=== PATIENT | female | born 1930 | race Caucasian/White ===

== ENCOUNTER → 2016-07-24 | Outpatient (CLI) | payer MEDICARE, OTHER ==
[2016-07-24 10:24] LABS: PROTHROMBIN TIME 37.6 SEC (11.4-15.4)
== END ==
LOC: OD 09:32
PROVIDERS: ATTEND Internal Medicine Cardiovascular Disease
DX: I48.2 Chronic atrial fibrillation (principal); Z79.01 Long term (current) use of anticoagulants
CPT/HCPCS: 36415; 85610

== ENCOUNTER → 2016-07-27 | Outpatient (CLI) | payer MEDICARE, OTHER ==
[2016-07-27 10:49] LABS: HEMOGLOBIN 12.7 g/dL (12.0-15.5); HGB HCT DIFFERENCE 0.1; MEAN CORPUSCULAR HGB CONC 33.3 g/dL (32.0-36.0); MEAN CORPUSCULAR VOLUME 90 fl (80-97); RED BLOOD COUNT 4.23 10^6/uL (3.72-5.28); RED CELL DISTRIBUTION WIDTH 15.3 % (11.5-14.0); WHITE BLOOD COUNT 7.8 10^3/uL (4.0-10.5)
[2016-07-27 11:02] LABS: PROTHROMBIN TIME 29.5 SEC (11.4-15.4)
[2016-07-27 11:23] LABS: ANION GAP 14 (5-19); BLOOD UREA NITROGEN 36 mg/dL (7-20); CARBON DIOXIDE 27 mmol/L (22-30); CHLORIDE 96 mmol/L (98-107); CREATININE RESULT 1.83 mg/dL (0.52-1.25); GLUCOSE 142 mg/dL (75-110); POTASSIUM 5.1 mmol/L (3.6-5.0); SODIUM 137.4 mmol/L (137-145)
== END ==
LOC: OD 09:37
PROVIDERS: ATTEND Internal Medicine Cardiovascular Disease
DX: R06.02 Shortness of breath (principal); Z79.899 Other long term (current) drug therapy; Z79.01 Long term (current) use of anticoagulants; I48.2 Chronic atrial fibrillation
CPT/HCPCS: 36415; 80048; 83735; 83880; 85027; 85610

== ENCOUNTER → 2016-08-02 | Outpatient (CLI) | payer MEDICARE, OTHER ==
[2016-08-02 12:03] LABS: PROTHROMBIN TIME 50.5 SEC (11.4-15.4)
== END ==
LOC: OD 09:37
PROVIDERS: ATTEND Internal Medicine Cardiovascular Disease
DX: I48.2 Chronic atrial fibrillation (principal); Z79.01 Long term (current) use of anticoagulants
CPT/HCPCS: 36415; 85610

== ENCOUNTER → 2016-08-09 | Outpatient (CLI) | payer MEDICARE, OTHER ==
[2016-08-09 10:18] LABS: PROTHROMBIN TIME 42.2 SEC (11.4-15.4)
== END ==
LOC: OD 08:50
PROVIDERS: ATTEND Internal Medicine Cardiovascular Disease
DX: I48.2 Chronic atrial fibrillation (principal); Z79.01 Long term (current) use of anticoagulants
CPT/HCPCS: 36415; 85610

== ENCOUNTER → 2016-08-22 | Outpatient (CLI) | payer MEDICARE, OTHER ==
[2016-08-22 10:55] LABS: PROTHROMBIN TIME 36.3 SEC (11.4-15.4)
== END ==
LOC: OD 09:14
PROVIDERS: ATTEND Internal Medicine Cardiovascular Disease
DX: I48.2 Chronic atrial fibrillation (principal); Z79.01 Long term (current) use of anticoagulants
CPT/HCPCS: 36415; 85610

== ENCOUNTER → 2016-09-03 | Outpatient (CLI) | payer MEDICARE, OTHER ==
[2016-09-03 11:10] LABS: PROTHROMBIN TIME 30.9 SEC (11.4-15.4)
== END ==
LOC: OD 09:49
PROVIDERS: ATTEND Internal Medicine Cardiovascular Disease
DX: Z79.01 Long term (current) use of anticoagulants (principal)
CPT/HCPCS: 36415; 85610

== ENCOUNTER → 2016-09-17 | Outpatient (CLI) | payer MEDICARE, OTHER ==
[2016-09-17 10:49] LABS: PROTHROMBIN TIME 33.7 SEC (11.4-15.4)
[2016-09-17 11:08] LABS: ANION GAP 14 (5-19); BLOOD UREA NITROGEN 35 mg/dL (7-20); CALCIUM 9.8 mg/dL (8.4-10.2); CARBON DIOXIDE 28 mmol/L (22-30); CHLORIDE 99 mmol/L (98-107); CREATININE RESULT 1.56 mg/dL (0.52-1.25); GLUCOSE 94 mg/dL (75-110); POTASSIUM 4.5 mmol/L (3.6-5.0); SODIUM 140.5 mmol/L (137-145)
== END ==
LOC: OD 09:17
PROVIDERS: ATTEND Internal Medicine Cardiovascular Disease
DX: R73.9 Hyperglycemia, unspecified (principal); N18.4 Chronic kidney disease, stage 4 (severe); E66.09 Other obesity due to excess calories; R06.02 Shortness of breath; Z79.01 Long term (current) use of anticoagulants
CPT/HCPCS: 36415; 80048; 83036; 83880; 85610

== ENCOUNTER → 2016-09-25 | Outpatient (CLI) | payer MEDICARE, OTHER ==
[2016-09-25 11:17] LABS: PROTHROMBIN TIME 34.1 SEC (11.4-15.4)
== END ==
LOC: OD 10:05
PROVIDERS: ATTEND Internal Medicine Cardiovascular Disease
DX: Z79.01 Long term (current) use of anticoagulants (principal)
CPT/HCPCS: 36415; 85610

== ENCOUNTER → 2016-10-09 | Outpatient (CLI) | payer MEDICARE, OTHER ==
[2016-10-09 11:15] LABS: PROTHROMBIN TIME 37.7 SEC (11.4-15.4)
[2016-10-09 11:16] LABS: ANION GAP 12 (5-19); BLOOD UREA NITROGEN 28 mg/dL (7-20); CALCIUM 9.8 mg/dL (8.4-10.2); CARBON DIOXIDE 28 mmol/L (22-30); CHLORIDE 100 mmol/L (98-107); CREATININE RESULT 1.61 mg/dL (0.52-1.25); GLUCOSE 92 mg/dL (75-110); MAGNESIUM 2.5 mg/dL (1.6-2.3); POTASSIUM 4.7 mmol/L (3.6-5.0); SODIUM 139.9 mmol/L (137-145)
== END ==
LOC: OD 09:17
PROVIDERS: ATTEND Internal Medicine Cardiovascular Disease
DX: N18.4 Chronic kidney disease, stage 4 (severe) (principal); R06.02 Shortness of breath; Z79.01 Long term (current) use of anticoagulants
CPT/HCPCS: 36415; 80048; 83735; 83880; 85610

== ENCOUNTER 2016-10-16 18:18 | Observation (INO) | payer MEDICARE, OTHER ==
--- NOTE | 2016-10-16 18:56 | ER Document Report ---
ED Medical Screen (RME) - General Stated Complaint: SWELLING Notes: Patient states she was sent over by Dr. Barajas for evaluation of heart failure, renal failure, and leg swelling. Patient denies chest pain but is having some shortness of breath. I have greeted and performed a rapid initial assessment of this patient. A comprehensive ED assessment and evaluation of the patient, analysis of test results and completion of the medical decision making process will be conducted by additional ED providers. TRAVEL OUTSIDE OF THE [place] IN LAST 30 DAYS: No - Related Data Allergies/Adverse Reactions: erythromycin base [Erythromycin Base] Allergy (Severe, Verified 10/16/16 18:50) Anaphylaxis dipyridamole [From Persantine] Allergy (Verified 10/16/16 18:50) doxycycline [Doxycycline] Allergy (Verified 10/16/16 18:50) ibuprofen [From Motrin] Allergy (Verified 10/16/16 18:50) penicillin G [Penicillin G] Allergy (Verified 10/16/16 18:50) Sulfa (Sulfonamide Antibiotics) Allergy (Verified 10/16/16 18:50) vancomycin [Vancomycin] Adverse Reaction (Intermediate, Verified 10/16/16 18:50) red rings legs Past Medical History - Past Medical History Cardiac Medical History: Reports: Hx Atrial Fibrillation, Hx Congestive Heart Failure, Hx Coronary Artery Disease, Hx Hypercholesterolemia, Hx Hypertension Denies: Hx Heart Attack Pulmonary Medical History: Reports: Hx Pneumonia Denies: Hx Asthma, Hx Bronchitis, Hx COPD Neurological Medical History: Reports: Hx Cerebrovascular Accident. Denies: Hx Seizures Malignancy Medical History: Reports: Hx Breast Cancer - LUMPECTOMY, Hx Skin Cancer GI Medical History: Reports: Hx Gastroesophageal Reflux Disease, Hx Irritable Bowel Musculoskeltal Medical History: Denies Hx Arthritis Past Surgical History: Reports: Hx Appendectomy, Hx Breast Surgery - REMOVAL OF RIGHT BREAST, LUMPECTOMY, Hx Cardiac Surgery - MILTRAL VALVE, BYPASS X 2, STENTS , Hx Cholecystectomy, Hx Hysterectomy. Denies: Hx Pacemaker - Immunizations Hx Diphtheria, Pertussis, Tetanus Vaccination: Yes Physical Exam - Vital signs Vitals: Temp Pulse Resp BP Pulse Ox 97.6 F 51 L 24 H 117/70 99 10/16/16 18:44 10/16/16 18:44 10/16/16 18:44 10/16/16 18:44 10/16/16 18:44 - Respiratory Respiratory status: No respiratory distress Breath sounds: Normal Course - Vital Signs Vital signs: Temp Pulse Resp BP Pulse Ox 97.6 F 51 L 24 H 117/70 99 10/16/16 18:44 10/16/16 18:44 10/16/16 18:44 10/16/16 18:44 10/16/16 18:44
[2016-10-16 19:24] LABS: ABSOLUTE BASOPHILS # (AUTO) 0.1 10^3/uL (0.0-0.2); ABSOLUTE EOSINOPHILS # (AUTO) 0.2 10^3/uL (0.0-0.6); ABSOLUTE LYMPHOCYTES (AUTO) 1.6 10^3/uL (0.5-4.7); ABSOLUTE MONOCYTES (AUTO) 0.6 10^3/uL (0.1-1.4); ABSOLUTE NEUT (AUTO) 4.5 10^3/uL (1.7-8.2); BASOPHILS % (AUTO) 1.1 % (0-2); EOSINOPHILS % (AUTO) 2.4 % (0-6); HEMATOCRIT 36.6 % (36.0-47.0); HEMOGLOBIN 12.2 g/dL (12.0-15.5); LYMPHOCYTES % (AUTO) 22.6 % (13-45); MEAN CORPUSCULAR HEMOGLOBIN 29.8 pg (27.0-33.4); MEAN CORPUSCULAR HGB CONC 33.4 g/dL (32.0-36.0); MEAN CORPUSCULAR VOLUME 89 fl (80-97); MONOCYTES % (AUTO) 8.8 % (3-13); RED BLOOD COUNT 4.11 10^6/uL (3.72-5.28); RED CELL DISTRIBUTION WIDTH 15.1 % (11.5-14.0); SEGMENTED NEUTROPHILS % (AUTO) 65.1 % (42-78); WHITE BLOOD COUNT 6.9 10^3/uL (4.0-10.5)
[2016-10-16 19:45] LABS: ALANINE AMINOTRANSFERASE 16 U/L (9-52); ALBUMIN 4.6 g/dL (3.5-5.0); ALKALINE PHOSPHATASE 96 U/L (38-126); ANION GAP 14 (5-19); ASPARTATE AMINO TRANSFERASE 27 U/L (14-36); BILIRUBIN,DIRECT 0.3 mg/dL (0.0-0.4); BILIRUBIN,TOTAL 2.2 mg/dL (0.2-1.3); BLOOD UREA NITROGEN 32 mg/dL (7-20); CALCIUM 9.7 mg/dL (8.4-10.2); CARBON DIOXIDE 30 mmol/L (22-30); CHLORIDE 97 mmol/L (98-107); CREATINE KINASE 31 U/L (30-135); CREATININE RESULT 1.81 mg/dL (0.52-1.25); GLUCOSE 86 mg/dL (75-110); LIPASE 111.1 U/L (23-300); POTASSIUM 4.3 mmol/L (3.6-5.0); SODIUM 140.9 mmol/L (137-145); TOTAL PROTEIN 7.6 g/dL (6.3-8.2)
[2016-10-16 19:53] LABS: CREATINE KINASE MB 0.28 ng/mL (<4.55)
[2016-10-16 19:54] LABS: TROPONIN I < 0.012 ng/mL
--- NOTE | 2016-10-16 20:22 | EKG REPORT ---
SEVERITY:- ABNORMAL ECG - ATRIAL FIBRILLATION LEFT BUNDLE BRANCH BLOCK : Confirmed by: Rian Oswald 16-Oct-2016 20:21:26
[2016-10-17 00:39] LABS: APPEARANCE,URINE CLEAR; BILIRUBIN,URINE NEGATIVE (NEGATIVE); GLUCOSE, URINE NEGATIVE (NEGATIVE); KETONES,URINE NEGATIVE (NEGATIVE); LEUKOCYTE ESTERASE,URINE SMALL (NEGATIVE); NITRITE,URINE NEGATIVE (NEGATIVE); PROTEIN,URINE NEGATIVE (NEGATIVE); URINE SPECIFIC GRAVITY 1.005; UROBILINOGEN,URINE NEGATIVE mg/dL (<2.0)
[2016-10-17] MEDS ORDERED: FUROSEMIDE INJ/PF 100 MG/10 ML SDV IV ONE (00:48)
--- NOTE | 2016-10-17 00:52 | ER Document Report ---
ED General - General Chief Complaint: Swelling of Lower Extremity Stated Complaint: SWELLING Mode of Arrival: Ambulatory Information source: Patient Notes: 86-year-old well-appearing female presents to the emergency department referred by her behavior support specialist for bilateral lower extremity edema. Patient reports history of CHF, CABG, and blood replacement in the past. Reports was recently changed from Lasix to torsemide. Patient reports was told by her behavior support specialist today Dr. Barajas to come to the emergency department for admission and intravenous Lasix. Patient reports feels like her chronic dyspnea with exertion and is at its baseline. Denies any fever or chest pain. Reports her only new or acute symptoms is bilateral lower extremity increased edema. TRAVEL OUTSIDE OF THE [place] IN LAST 30 DAYS: No - HPI Quality of pain: No pain Similar symptoms previously: Yes Recently seen / treated by doctor: Yes - Related Data Allergies/Adverse Reactions: erythromycin base [Erythromycin Base] Allergy (Severe, Verified 10/16/16 18:50) Anaphylaxis dipyridamole [From Persantine] Allergy (Verified 10/16/16 18:50) doxycycline [Doxycycline] Allergy (Verified 10/16/16 18:50) ibuprofen [From Motrin] Allergy (Verified 10/16/16 18:50) penicillin G [Penicillin G] Allergy (Verified 10/16/16 18:50) Sulfa (Sulfonamide Antibiotics) Allergy (Verified 10/16/16 18:50) vancomycin [Vancomycin] Adverse Reaction (Intermediate, Verified 10/16/16 18:50) red rings legs Home Medications: Current Home Medications Chlordiazepoxide/Clidinium Br [Librax Capsule] 10/17/16 [History] Torsemide [Demadex 20 mg Tablet] 20 mg PO BID 10/17/16 [History] Past Medical History - General Information source: Patient - Social History Smoking Status: Never Smoker Chew tobacco use (# tins/day): No Frequency of alcohol use: None Drug Abuse: None Lives with: Family Family History: Reviewed & Not Pertinent Patient has suicidal ideation: No Patient has homicidal ideation: No - Past Medical History Cardiac Medical History: Reports: Hx Atrial Fibrillation, Hx Congestive Heart Failure, Hx Coronary Artery Disease, Hx Hypercholesterolemia, Hx Hypertension Denies: Hx Heart Attack Pulmonary Medical History: Reports: Hx Pneumonia Denies: Hx Asthma, Hx Bronchitis, Hx COPD Neurological Medical History: Reports: Hx Cerebrovascular Accident. Denies: Hx Seizures Renal/ Medical History: Denies: Hx Peritoneal Dialysis Malignancy Medical History: Reports: Hx Breast Cancer - LUMPECTOMY, Hx Skin Cancer GI Medical History: Reports: Hx Gastroesophageal Reflux Disease, Hx Irritable Bowel Musculoskeltal Medical History: Denies Hx Arthritis Past Surgical History: Reports: Hx Appendectomy, Hx Breast Surgery - REMOVAL OF RIGHT BREAST, LUMPECTOMY, Hx Cardiac Surgery - MILTRAL VALVE, BYPASS X 2, STENTS , Hx Cholecystectomy, Hx Hysterectomy. Denies: Hx Pacemaker - Immunizations Hx Diphtheria, Pertussis, Tetanus Vaccination: Yes Hx Pneumococcal Vaccination: 07/22/11 Review of Systems - Review of Systems Constitutional: No symptoms reported EENT: No symptoms reported Cardiovascular: See HPI Respiratory: No symptoms reported Gastrointestinal: No symptoms reported Genitourinary: No symptoms reported Female Genitourinary: No symptoms reported Musculoskeletal: See HPI Skin: No symptoms reported Hematologic/Lymphatic: No symptoms reported Neurological/Psychological: No symptoms reported -: Yes All other systems reviewed and negative Physical Exam - Vital signs Vitals: Temp Pulse Resp BP Pulse Ox 97.6 F 51 L 24 H 117/70 99 10/16/16 18:44 10/16/16 18:44 10/16/16 18:44 10/16/16 18:44 10/16/16 18:44 - General General appearance: Appears well, Alert In distress: None - Respiratory Respiratory status: No respiratory distress Chest status: Nontender Breath sounds: Normal - CTAB. No: Rales, Rhonchi Chest palpation: Normal - Cardiovascular Rhythm: Regular Heart sounds: Normal auscultation Murmur: No Pulses: Normal: Radial Normal capillary refill: Yes - Abdominal Inspection: Normal Distension: No distension Bowel sounds: Normal Tenderness: Nontender Organomegaly: No organomegaly - Back Back: Normal, Nontender - Extremities General upper extremity: Normal inspection, Nontender, Normal color, Normal ROM , Normal strength, Normal temperature. No: Edema General lower extremity: Normal inspection, Nontender, Edema - 4+ bilateral lower extremity edema, Normal color, Normal ROM, Normal strength, Normal temperature, Normal weight bearing. No: Rachel's sign - Neurological Neuro grossly intact: Yes Cognition: Normal Orientation: AAOx4 Amery Coma Scale Eye Opening: Spontaneous Amery Coma Scale Verbal: Oriented Amery Coma Scale Motor: Obeys Commands Kayleen Coma Scale Total: 15 Speech: Normal Motor strength normal: LUE, RUE, LLE, RLE Sensory: Normal Course - Re-evaluation Re-evalutation: 10/17/16 00:45 Patient hemodynamically stable, in no distress, afebrile, nontoxic, and very well-appearing. Patient was referred to the emergency department by her behavior support specialist Dr. Barajas for admission and IV diuresis with 100 mg Lasix per behavior support specialist. Patient presentation and findings were discussed with hospitalist Dr. Escamilla who agrees to assume care and admit to observation unit. Findings and plan discussed with patient who is agreeable with admission for observation. ED physician Dr. Beckwith consulted during evaluation, treatment, and disposition per [facility] guidelines. - Vital Signs Vital signs: Temp Pulse Resp BP Pulse Ox 97.6 F 68 16 122/58 L 96 10/17/16 05:39 10/17/16 05:39 10/17/16 05:39 10/17/16 05:39 10/17/16 05:39 - Laboratory Result Diagrams: 10/16/16 19:05 10/17/16 06:39 Laboratory results interpreted by me: 10/16/16 10/16/16 10/16/16 19:05 19:05 19:05 RDW 15.1 H Chloride 97 L BUN 32 H Creatinine 1.81 H Est GFR ( Amer) 32 L Est GFR (Non-Af Amer) 26 L Total Bilirubin 2.2 H NT-Pro-B Natriuret Pep 6090 H Ur Leukocyte Esterase 10/17/16 00:10 RDW Chloride BUN Creatinine Est GFR ( Amer) Est GFR (Non-Af Amer) Total Bilirubin NT-Pro-B Natriuret Pep Ur Leukocyte Esterase SMALL H - Diagnostic Test Radiology reviewed: Image reviewed, Reports reviewed Discharge - Discharge Clinical Impression: Bilateral lower extremity edema Condition: Stable Disposition: ADMITTED OBSERVATION Admitting Provider: Hospitalist - Dr. Escamilla Unit Admitted: Telemetry
[2016-10-17] MEDS ORDERED: MAGNESIUM HYDROXIDE SUSP 30 ML UDCUP PO PRN (01:28)
[2016-10-17] MEDS ORDERED: ACETAMINOPHEN 325 MG TABLET PO PRN (01:28)
[2016-10-17] MEDS ORDERED: LACTULOSE SYRUP 20 GM/30 ML UDCUP PO ONE (01:45)
[2016-10-17] MEDS ORDERED: HEPARIN SOD (PORCINE) 5,000 UNIT/ML 1 ML SYRINGE SUBCUT SCH (06:00)
--- NOTE | 2016-10-17 06:07 | PDOC H&P ---
History of Present Illness Admission Date/PCP: 10/17/16 01:28 CHRISTIANA MEJIA MD Patient complains of: Lower extremity edema History of Present Illness: VERA DORANTES is a 86 year old female with a past medical history of stage III chronic kidney disease, atrial fibrillation, congestive heart failure, hypertension, A fibrillation, mechanical aortic valve on chronic anticoagulation and venous stasis. Who been her usual state of health until approximately week ago noting excessive lower extremity edema prompting him to seek evaluation with her tool/die maker Dr. Barajas who refers her to the emergency room for evaluation. Prior to presentation the patient has taken 40 mg of torsemide, her labs are concerning for acute on chronic kidney disease. She denies diet or medication noncompliance but admits refusal of RENATO stockings with a primary complaint of lower extremity edema. Past Medical History Cardiac Medical History: Reports: Atrial Fibrillation, Congestive Heart Failure , Coronary Artery Disease, Hyperlipidema, Hypertension Denies: Myocardial Infarction Pulmonary Medical History: Reports: Pneumonia Denies: Asthma, Bronchitis, Chronic Obstructive Pulmonary Disease (COPD) Neurological Medical History: Denies: Seizures Malignancy Medical History: Reports: Breast Cancer - LUMPECTOMY, Skin Cancer GI Medical History: Reports: Gastroesophageal Reflux Disease Musculoskeltal Medical History: Denies: Arthritis Hematology: Denies: Anemia Past Surgical History Past Surgical History: Reports: Appendectomy, Cholecystectomy, Hysterectomy Denies: Pacemaker Social History Information Source: Patient Smoking Status: Unknown if Ever Smoked Frequency of Alcohol Use: None Hx Recreational Drug Use: No Drugs: None Hx Prescription Drug Abuse: No - Advance Directive Resuscitation Status: Full Code Family History Family History: Hypertension Parental Family History Reviewed: Yes Children Family History Reviewed: Yes Sibling(s) Family History Reviewed.: Yes Medication/Allergy Home Medications: Chlordiazepoxide/Clidinium Br [Librax Capsule] 1 cap PO QHS 06/23/15 Ergocalciferol (Vitamin D2) [Vitamin D2] 2,000 unit PO DAILY 06/23/15 Ezetimibe [Zetia 10 mg Tablet] 10 mg PO DAILY 06/23/15 Pravastatin Sodium 40 mg PO QHS 06/23/15 Spironolactone [Aldactone 25 mg Tablet] 12.5 mg PO DAILY 06/23/15 Warfarin Sodium [Coumadin 3 mg Tablet] 3 mg PO DAILY 06/23/15 Ciprofloxacin HCl [Cipro 500 mg Tablet] 500 mg PO BID #20 tablet 07/20/15 Chlordiazepoxide/Clidinium Br [Librax Capsule] 10/17/16 Torsemide [Demadex 20 mg Tablet] 20 mg PO BID 10/17/16 Allergies/Adverse Reactions: erythromycin base [Erythromycin Base] Allergy (Severe, Verified 10/16/16 18:50) Anaphylaxis dipyridamole [From Persantine] Allergy (Verified 10/16/16 18:50) doxycycline [Doxycycline] Allergy (Verified 10/16/16 18:50) ibuprofen [From Motrin] Allergy (Verified 10/16/16 18:50) penicillin G [Penicillin G] Allergy (Verified 10/16/16 18:50) Sulfa (Sulfonamide Antibiotics) Allergy (Verified 10/16/16 18:50) vancomycin [Vancomycin] Adverse Reaction (Intermediate, Verified 10/16/16 18:50) red rings legs Review of Systems Constitutional: ABSENT: chills, fever(s), headache(s), weight gain, weight loss Eyes: ABSENT: visual disturbances Ears: ABSENT: hearing changes Cardiovascular: ABSENT: chest pain, dyspnea on exertion, edema, orthropnea, palpitations Respiratory: ABSENT: cough, hemoptysis Gastrointestinal: ABSENT: abdominal pain, constipation, diarrhea, hematemesis, hematochezia, nausea, vomiting Genitourinary: ABSENT: dysuria, hematuria Musculoskeletal: ABSENT: joint swelling Integumentary: ABSENT: rash, wounds Neurological: ABSENT: abnormal gait, abnormal speech, confusion, dizziness, focal weakness, syncope Psychiatric: ABSENT: anxiety, depression, homidical ideation, suicidal ideation Endocrine: ABSENT: cold intolerance, heat intolerance, polydipsia, polyuria Hematologic/Lymphatic: ABSENT: easy bleeding, easy bruising Physical Exam Vital Signs: Temp Pulse Resp BP Pulse Ox 97.6 F 51 L 14 130/67 H 93 10/16/16 18:44 10/16/16 18:44 10/17/16 04:00 10/17/16 01:01 10/17/16 04:00 General appearance: PRESENT: cooperative Head exam: PRESENT: atraumatic, normocephalic Eye exam: PRESENT: conjunctiva pink, EOMI, PERRLA. ABSENT: scleral icterus Ear exam: PRESENT: normal external ear exam Mouth exam: PRESENT: dry mucosa Neck exam: ABSENT: carotid bruit, JVD, lymphadenopathy, thyromegaly Respiratory exam: PRESENT: clear to auscultation james, crackles, other - Right base crackles present and known chronic. ABSENT: accessory muscle use, chest wall tenderness, decreased breath sounds, prolonged expiratory phas, rales, retraction, rhonchi, tachypnea, wheezes Cardiovascular exam: PRESENT: irregular rhythm, +S1, +S2, systolic murmur. ABSENT: diastolic murmur, gallop, RRR, rubs Pulses: PRESENT: normal dorsalis pedis pul Vascular exam: PRESENT: normal capillary refill GI/Abdominal exam: PRESENT: normal bowel sounds, soft. ABSENT: distended, guarding, mass, organolmegaly, rebound, tenderness Rectal exam: PRESENT: deferred Extremities exam: PRESENT: +2 edema - Chronic +2 lower extremity edema suggestive of stasis Musculoskeletal exam: PRESENT: full ROM Neurological exam: PRESENT: alert, awake, oriented to person, oriented to place , oriented to time, oriented to situation, CN II-XII grossly intact. ABSENT: motor sensory deficit Psychiatric exam: PRESENT: appropriate affect, normal mood. ABSENT: homicidal ideation, suicidal ideation Skin exam: PRESENT: dry, intact, warm. ABSENT: cyanosis, rash Results Impressions: Chest X-Ray 10/16/16 18:51 IMPRESSION: Cardiomegaly. Minimal airspace disease in the right base either atelectasis or developing pneumonia. Assessment & Plan - Diagnosis (1) Acute worsening of stage 4 chronic kidney disease Plan: Patient initiated Demadex 40 mg prior to ER presentation double her usual dose and presents without decompensation of congestive heart failure, I'll avoid nephrotoxic drugs and doses, or additional diuresis pending follow-up chemistry (2) CHF (congestive heart failure) Qualifiers: Congestive heart failure type: systolic Is this a current diagnosis for this admission?: YesPlan: Patient appears well compensated currently will continue to monitor clinically (3) History of aortic valve replacement Is this a current diagnosis for this admission?: YesPlan: Evaluate INR and continue Coumadin (4) Venous stasis Is this a current diagnosis for this admission?: YesPlan: Patient received extensive education regarding her chronic lower extremity edema and her need of compression stockings, emphasizing diuretics will worsen renal failure without improving her lower extremity edema - Time Time Spent: 30 to 50 Minutes
[2016-10-17 06:32] VITALS: BP 122/58
[2016-10-17 06:56] LABS: PROTHROMBIN TIME 33.1 SEC (11.4-15.4)
[2016-10-17 07:09] LABS: ANION GAP 12 (5-19); BLOOD UREA NITROGEN 30 mg/dL (7-20); CALCIUM 9.2 mg/dL (8.4-10.2); CARBON DIOXIDE 29 mmol/L (22-30); CHLORIDE 99 mmol/L (98-107); CREATININE RESULT 1.63 mg/dL (0.52-1.25); GLUCOSE 95 mg/dL (75-110); POTASSIUM 4.3 mmol/L (3.6-5.0); SODIUM 139.8 mmol/L (137-145)
[2016-10-17] MEDS ORDERED: (PENDING PHARMACY ID) (Warfarin Sodium 3 MG) PO SCH (10:00)
[2016-10-17] MEDS ORDERED: DOCUSATE SODIUM 100 MG CAPSULE PO SCH (10:00)
[2016-10-17] MEDS ORDERED: ATENOLOL 50 MG TABLET PO SCH (10:00)
[2016-10-17] MEDS ORDERED: (PENDING PHARMACY ID) (Bisoprolol Fumarate [Zebeta 5 Mg Tablet] 2.5 MG) PO SCH (10:00)
[2016-10-17] MEDS ORDERED: TORSEMIDE 20 MG TABLET PO SCH (10:00)
[2016-10-17] MEDS ORDERED: SPIRONOLACTONE 25 MG TABLET PO SCH (10:00)
--- NOTE | 2016-10-17 12:46 | PDOC DISCHARGE SUMMARY ---
General - Admit/Disc Date/PCP Admission Date/Primary Care Provider: 10/17/16 01:28 CHRISTIANA MEJIA MD Discharge Date: 10/17/16 - Discharge Diagnosis (1) Acute worsening of stage 4 chronic kidney disease Is this a current diagnosis for this admission?: Yes (2) Bilateral lower extremity edema Is this a current diagnosis for this admission?: Yes (3) CHF (congestive heart failure) Is this a current diagnosis for this admission?: YesSummary: Patient no evidence for exacerbation (4) Venous stasis Is this a current diagnosis for this admission?: Yes (5) Anticoagulated on Coumadin Is this a current diagnosis for this admission?: Yes (6) Atrial fibrillation Is this a current diagnosis for this admission?: Yes (7) History of aortic valve replacement Is this a current diagnosis for this admission?: Yes (8) History of mitral valve replacement with mechanical valve Is this a current diagnosis for this admission?: Yes (9) Hyperlipidemia Is this a current diagnosis for this admission?: Yes - Additional Information Resuscitation Status: Full Code Discharge Diet: Cardiac Discharge Activity: Activity As Tolerated, Keep Legs Elevated Home Medications: Chlordiazepoxide/Clidinium Br [Librax Capsule] 1 cap PO QHS 06/23/15 Ergocalciferol (Vitamin D2) [Vitamin D2] 2,000 unit PO DAILY 06/23/15 Ezetimibe [Zetia 10 mg Tablet] 10 mg PO DAILY 06/23/15 Pravastatin Sodium 40 mg PO QHS 06/23/15 Spironolactone [Aldactone 25 mg Tablet] 12.5 mg PO DAILY 06/23/15 Warfarin Sodium [Coumadin 3 mg Tablet] 3 mg PO DAILY 06/23/15 Bisoprolol Fumarate [Zebeta 5 mg Tablet] 5 mg PO DAILY 10/17/16 Chlordiazepoxide/Clidinium Br [Librax Capsule] 1 cap PO QHS 10/17/16 Torsemide [Demadex 20 mg Tablet] 20 mg PO BID 10/17/16 History of Present Illness History of Present Illness: VERA DORANTES is a 86 year old female with a history of congestive heart failure as well as atrial fibrillation and chronic renal failure who presented with lower extremity edema. Patient called her catering assistant who recommended she go to emergency room. She had actually increased her torsemide dose, doubled her usual the day prior to presentation. She is noted have an elevated creatinine. She however has not had any orthopnea or PND. She has not worn any lower extremity support hose. Hospital Course Hospital Course: 86-year-old female who presented with complaints of lower extremity edema. Patient however not had any orthopnea PND or worsening shortness of breath. Most for changes were chronic venous stasis changes. The patient however did notice an elevation in her creatinine. She was instructed to decrease her diuretic dose back to her usual dose instead of the double dose she had taken prior to presentation. The patient's creatinine did improve overnight and was felt that she was stable for discharge to home. She is instructed to weigh daily, where lower extremity support hose, and watch his sodium intake. All of her other medical problems were unchanged during this hospitalization. Her Coumadin level on the day of discharge showed an INR of 3.0. Physical Exam Vital Signs: Temp Pulse Resp BP Pulse Ox 97.6 F 60 17 122/58 L 96 10/17/16 11:56 10/17/16 11:56 10/17/16 11:56 10/17/16 05:39 10/17/16 11:56 General appearance: PRESENT: no acute distress Eye exam: PRESENT: conjunctiva pink. ABSENT: scleral icterus Mouth exam: PRESENT: moist, tongue midline Neck exam: ABSENT: JVD Respiratory exam: PRESENT: clear to auscultation james. ABSENT: rales, rhonchi, wheezes Cardiovascular exam: PRESENT: RRR, systolic murmur. ABSENT: diastolic murmur, rubs GI/Abdominal exam: PRESENT: normal bowel sounds, soft. ABSENT: distended, guarding, mass, organolmegaly, rebound, tenderness Extremities exam: PRESENT: full ROM, pedal edema, +2 edema. ABSENT: calf tenderness, clubbing Neurological exam: PRESENT: alert, awake, oriented to person, oriented to place , oriented to time, oriented to situation, CN II-XII grossly intact. ABSENT: motor sensory deficit Psychiatric exam: PRESENT: appropriate affect Skin exam: PRESENT: other - Venous stasis changes of the lower extremities bilaterally. Results Laboratory Results: 10/17/16 06:39 10/17/16 06:39 Sodium 139.8 Potassium 4.3 Chloride 99 Carbon Dioxide 29 Anion Gap 12 BUN 30 H Creatinine 1.63 H Est GFR ( Amer) 36 L Est GFR (Non-Af Amer) 30 L Glucose 95 Calcium 9.2 Impressions: Chest X-Ray 10/16/16 18:51 IMPRESSION: Cardiomegaly. Minimal airspace disease in the right base either atelectasis or developing pneumonia. Qualifiers PATEINT BEING DISCHARGED WITH ANY OF THE FOLLOWING DIAGNOSIS?: Heart Failure HF Pt being discharged on ACEI for LVEF less than 40%?: No Reason(s) for not prescribing ACEI:: Drug intolerance HF Pt being discharged on ARBS for LVEF less than 40%?: No Reason(s) for not prescribing ARBS:: Drug intolerance HF Pt with Afib discharged with Warfarin?: Yes HF Pt discharged on evidence-based Beta Casi:: Yes Plan Discharge Plan: Patient will follow up with her primary care doctor in 2 weeks. Time Spent: Less than 30 Minutes
[2016-10-17] MEDS ORDERED: ATORVASTATIN CALCIUM 10 MG TABLET PO SCH (22:00)
[2016-10-17] MEDS ORDERED: WARFARIN SODIUM 3 MG TABLET PO SCH (22:00)
[2016-10-17] MEDS ORDERED: (PENDING PHARMACY ID) (Pravastatin Sodium [Pravastatin Sodium] 40 MG) PO SCH (22:00)
== END 2016-10-17 12:21 | disposition home or self-care (01) ==
LOC: ER 18:18 → UNDOADMOB 10-17 01:03 → EH 10-17 01:03 → 5 10-17 05:00
PROVIDERS: ADMIT Internal Medicine; ATTEND Internal Medicine
DX: N17.9 Acute kidney failure, unspecified (principal); I13.0 Hypertensive heart and chronic kidney disease with heart failure and stage 1 through stage 4 chronic kidney disease, or unspecified chronic kidney disease; N18.4 Chronic kidney disease, stage 4 (severe); I50.20 Unspecified systolic (congestive) heart failure; I87.8 Other specified disorders of veins; R60.9 Edema, unspecified; E78.5 Hyperlipidemia, unspecified; I48.91 Unspecified atrial fibrillation; I25.10 Atherosclerotic heart disease of native coronary artery without angina pectoris; Z79.01 Long term (current) use of anticoagulants; Z95.2 Presence of prosthetic heart valve; Z95.1 Presence of aortocoronary bypass graft
CPT/HCPCS: 93005; 99285; 36415 ×2; 82553; 82550; 83690; 84443; 85025; 85610; 80048; 80053; 81001; 84484; 83880; 71020; 93010; G0378 ×2; A9270 ×4; J3490

== ENCOUNTER → 2016-10-16 | Outpatient (CLI) | payer MEDICARE ==
[2016-10-16 11:13] LABS: PROTHROMBIN TIME 33.8 SEC (11.4-15.4)
== END ==
LOC: OD 09:50
PROVIDERS: ATTEND Internal Medicine Cardiovascular Disease
DX: Z79.01 Long term (current) use of anticoagulants (principal)
CPT/HCPCS: 36415; 85610

== ENCOUNTER → 2016-10-19 | Outpatient (CLI) | payer MEDICARE, OTHER | LOC: RAD 08:33 | PROVIDERS: ATTEND Internal Medicine Nephrology | DX: N18.4 Chronic kidney disease, stage 4 (severe) (principal) | CPT/HCPCS: 76770 ==

== ENCOUNTER → 2016-10-19 | Outpatient (CLI) | payer MEDICARE ==
[2016-10-19 10:41] LABS: ABSOLUTE BASOPHILS # (AUTO) 0.1 10^3/uL (0.0-0.2); ABSOLUTE EOSINOPHILS # (AUTO) 0.2 10^3/uL (0.0-0.6); ABSOLUTE LYMPHOCYTES (AUTO) 1.2 10^3/uL (0.5-4.7); ABSOLUTE MONOCYTES (AUTO) 0.5 10^3/uL (0.1-1.4); ABSOLUTE NEUT (AUTO) 5.2 10^3/uL (1.7-8.2); EOSINOPHILS % (AUTO) 2.4 % (0-6); HEMATOCRIT 36.2 % (36.0-47.0); HEMOGLOBIN 12.1 g/dL (12.0-15.5); HGB HCT DIFFERENCE 0.1; LYMPHOCYTES % (AUTO) 16.7 % (13-45); MEAN CORPUSCULAR HEMOGLOBIN 29.9 pg (27.0-33.4); MEAN CORPUSCULAR HGB CONC 33.4 g/dL (32.0-36.0); MEAN CORPUSCULAR VOLUME 89 fl (80-97); MONOCYTES % (AUTO) 7.5 % (3-13); RED BLOOD COUNT 4.05 10^6/uL (3.72-5.28); RED CELL DISTRIBUTION WIDTH 14.9 % (11.5-14.0); SEGMENTED NEUTROPHILS % (AUTO) 72.4 % (42-78); WHITE BLOOD COUNT 7.2 10^3/uL (4.0-10.5)
[2016-10-19 10:44] LABS: PROTHROMBIN TIME 42.3 SEC (11.4-15.4)
[2016-10-19 11:08] LABS: ALBUMIN 4.4 g/dL (3.5-5.0); ANION GAP 16 (5-19); BLOOD UREA NITROGEN 33 mg/dL (7-20); CALCIUM 9.8 mg/dL (8.4-10.2); CARBON DIOXIDE 26 mmol/L (22-30); CHLORIDE 101 mmol/L (98-107); CREATININE RESULT 1.71 mg/dL (0.52-1.25); GLUCOSE 93 mg/dL (75-110); PHOSPHORUS 4.1 mg/dL (2.5-4.5); POTASSIUM 4.4 mmol/L (3.6-5.0); SODIUM 142.5 mmol/L (137-145)
[2016-10-20 10:37] LABS: CREATININE URINE 54.7 mg/dL (Not Estab.); MICROALBUMIN URINE 53.6 ug/mL (Not Estab.)
[2016-10-20 11:12] LABS: VITAMIN D 25-HYDROXY 61.6 ng/mL (30.0-100.0)
== END ==
LOC: OD 09:34
PROVIDERS: ATTEND Internal Medicine Cardiovascular Disease
DX: I13.10 Hypertensive heart and chronic kidney disease without heart failure, with stage 1 through stage 4 chronic kidney disease, or unspecified chronic kidney disease (principal); N18.4 Chronic kidney disease, stage 4 (severe); Z79.01 Long term (current) use of anticoagulants
CPT/HCPCS: 80048; 82040; 82043; 82306; 82570; 83970; 84100; 85025; 85610

== ENCOUNTER → 2016-10-25 | Outpatient (CLI) | payer MEDICARE | LOC: OD 09:13 | PROVIDERS: ATTEND Internal Medicine Cardiovascular Disease | DX: Z79.01 Long term (current) use of anticoagulants (principal) | CPT/HCPCS: 36415; 85610 ==

== ENCOUNTER → 2016-11-05 | Outpatient (CLI) | payer MEDICARE ==
[2016-11-05 12:03] LABS: PROTHROMBIN TIME 38.3 SEC (11.4-15.4)
== END ==
LOC: OD 09:55
PROVIDERS: ATTEND Internal Medicine Cardiovascular Disease
DX: Z79.01 Long term (current) use of anticoagulants (principal)
CPT/HCPCS: 36415; 85610

== ENCOUNTER → 2016-11-26 | Outpatient (CLI) | payer MEDICARE, OTHER ==
[2016-11-26 09:50] LABS: PROTHROMBIN TIME 42.7 SEC (11.4-15.4)
== END ==
LOC: OD 09:01
PROVIDERS: ATTEND Internal Medicine Cardiovascular Disease
DX: Z79.01 Long term (current) use of anticoagulants (principal); Z51.81 Encounter for therapeutic drug level monitoring
CPT/HCPCS: 36415; 85610

== ENCOUNTER → 2016-12-04 | Outpatient (CLI) | payer MEDICARE, OTHER ==
[2016-12-04 10:58] LABS: PROTHROMBIN TIME 27.4 SEC (11.4-15.4)
== END ==
LOC: OD 09:30
PROVIDERS: ATTEND Internal Medicine Cardiovascular Disease
DX: Z79.01 Long term (current) use of anticoagulants (principal)
CPT/HCPCS: 36415; 85610

== ENCOUNTER → 2016-12-18 | Outpatient (CLI) | payer MEDICARE, OTHER ==
[2016-12-18 10:10] LABS: HEMATOCRIT 34.9 % (36.0-47.0); HEMOGLOBIN 11.5 g/dL (12.0-15.5); HGB HCT DIFFERENCE -0.4; MEAN CORPUSCULAR HEMOGLOBIN 29.5 pg (27.0-33.4); MEAN CORPUSCULAR HGB CONC 33.1 g/dL (32.0-36.0); MEAN CORPUSCULAR VOLUME 89 fl (80-97); RED BLOOD COUNT 3.91 10^6/uL (3.72-5.28); RED CELL DISTRIBUTION WIDTH 15.1 % (11.5-14.0)
[2016-12-18 10:40] LABS: ANION GAP 12 (5-19); BLOOD UREA NITROGEN 35 mg/dL (7-20); CALCIUM 9.3 mg/dL (8.4-10.2); CARBON DIOXIDE 28 mmol/L (22-30); CHLORIDE 98 mmol/L (98-107); CREATININE RESULT 1.72 mg/dL (0.52-1.25); GLUCOSE 97 mg/dL (75-110); POTASSIUM 4.3 mmol/L (3.6-5.0); SODIUM 138.3 mmol/L (137-145)
== END ==
LOC: OD 09:02
PROVIDERS: ATTEND Internal Medicine Cardiovascular Disease
DX: N18.4 Chronic kidney disease, stage 4 (severe) (principal); R06.02 Shortness of breath; I49.02 Ventricular flutter
CPT/HCPCS: 36415; 80048; 83735; 83880; 85027

== ENCOUNTER → 2016-12-18 | Outpatient (CLI) | payer MEDICARE, OTHER ==
[2016-12-18 10:16] LABS: PROTHROMBIN TIME 25.1 SEC (11.4-15.4)
== END ==
LOC: OD 08:57
PROVIDERS: ATTEND Internal Medicine Cardiovascular Disease
DX: Z79.01 Long term (current) use of anticoagulants (principal); Z51.81 Encounter for therapeutic drug level monitoring
CPT/HCPCS: 36415; 80048; 83735; 83880; 85027; 85610

== ENCOUNTER → 2016-12-24 | Outpatient (CLI) | payer MEDICARE, OTHER ==
[2016-12-24 10:41] LABS: PROTHROMBIN TIME 32.7 SEC (11.4-15.4)
== END ==
LOC: OD 09:26
PROVIDERS: ATTEND Internal Medicine Cardiovascular Disease
DX: Z79.01 Long term (current) use of anticoagulants (principal)
CPT/HCPCS: 36415; 85610

== ENCOUNTER → 2016-12-31 | Outpatient (CLI) | payer MEDICARE, OTHER ==
[2016-12-31 09:56] LABS: PROTHROMBIN TIME 37.6 SEC (11.4-15.4)
== END ==
LOC: OD 09:05
PROVIDERS: ATTEND Internal Medicine Cardiovascular Disease
DX: Z79.01 Long term (current) use of anticoagulants (principal)
CPT/HCPCS: 36415; 85610

== ENCOUNTER → 2017-01-14 | Outpatient (CLI) | payer MEDICARE, OTHER ==
[2017-01-14 10:17] LABS: HEMATOCRIT 36.7 % (36.0-47.0); HGB HCT DIFFERENCE -0.7; MEAN CORPUSCULAR HEMOGLOBIN 28.9 pg (27.0-33.4); MEAN CORPUSCULAR HGB CONC 32.6 g/dL (32.0-36.0); MEAN CORPUSCULAR VOLUME 89 fl (80-97); RED BLOOD COUNT 4.14 10^6/uL (3.72-5.28); RED CELL DISTRIBUTION WIDTH 15.5 % (11.5-14.0); WHITE BLOOD COUNT 5.6 10^3/uL (4.0-10.5)
[2017-01-14 10:22] LABS: PROTHROMBIN TIME 48.1 SEC (11.4-15.4)
[2017-01-14 10:42] LABS: ANION GAP 12 (5-19); BLOOD UREA NITROGEN 30 mg/dL (7-20); CARBON DIOXIDE 28 mmol/L (22-30); CHLORIDE 99 mmol/L (98-107); CREATININE RESULT 1.69 mg/dL (0.52-1.25); GLUCOSE 122 mg/dL (75-110); POTASSIUM 4.4 mmol/L (3.6-5.0); SODIUM 138.7 mmol/L (137-145)
== END ==
LOC: OD 09:15
PROVIDERS: ATTEND Internal Medicine Cardiovascular Disease
DX: N18.4 Chronic kidney disease, stage 4 (severe) (principal); Z79.01 Long term (current) use of anticoagulants; R06.02 Shortness of breath; I49.02 Ventricular flutter
CPT/HCPCS: 36415; 80048; 83735; 83880; 85027; 85610

== ENCOUNTER → 2017-01-16 | Outpatient (CLI) | payer MEDICARE, OTHER ==
[2017-01-16 10:31] LABS: PROTHROMBIN TIME 34.6 SEC (11.4-15.4)
== END ==
LOC: OD 09:33
PROVIDERS: ATTEND Internal Medicine Cardiovascular Disease
DX: Z79.01 Long term (current) use of anticoagulants (principal); Z51.81 Encounter for therapeutic drug level monitoring
CPT/HCPCS: 36415; 85610

== ENCOUNTER → 2017-01-21 | Outpatient (CLI) | payer MEDICARE, OTHER ==
[2017-01-21 10:32] LABS: PROTHROMBIN TIME 43.2 SEC (11.4-15.4)
== END ==
LOC: OD 09:11
PROVIDERS: ATTEND Internal Medicine Cardiovascular Disease
DX: Z79.01 Long term (current) use of anticoagulants (principal); Z51.81 Encounter for therapeutic drug level monitoring
CPT/HCPCS: 36415; 85610

== ENCOUNTER → 2017-01-28 | Outpatient (CLI) | payer MEDICARE, OTHER ==
[2017-01-28 11:14] LABS: PROTHROMBIN TIME 24.2 SEC (11.4-15.4)
== END ==
LOC: OD 09:31
PROVIDERS: ATTEND Internal Medicine Cardiovascular Disease
DX: Z79.01 Long term (current) use of anticoagulants (principal); Z51.81 Encounter for therapeutic drug level monitoring
CPT/HCPCS: 36415; 85610

== ENCOUNTER → 2017-01-30 | Outpatient (CLI) | payer MEDICARE, OTHER ==
[2017-01-30 10:52] LABS: ANION GAP 19 (5-19); BLOOD UREA NITROGEN 65 mg/dL (7-20); CALCIUM 9.5 mg/dL (8.4-10.2); CARBON DIOXIDE 30 mmol/L (22-30); CHLORIDE 86 mmol/L (98-107); CREATININE RESULT 2.14 mg/dL (0.52-1.25); GLUCOSE 114 mg/dL (75-110); POTASSIUM 3.5 mmol/L (3.6-5.0); SODIUM 134.5 mmol/L (137-145)
== END ==
LOC: OD 09:00
PROVIDERS: ATTEND Internal Medicine Cardiovascular Disease
DX: R06.02 Shortness of breath (principal); N18.4 Chronic kidney disease, stage 4 (severe)
CPT/HCPCS: 36415; 80048; 83880

== ENCOUNTER → 2017-02-04 | Outpatient (CLI) | payer MEDICARE, OTHER ==
[2017-02-04 10:57] LABS: PROTHROMBIN TIME 42.2 SEC (11.4-15.4)
[2017-02-04 16:23] LABS: ANION GAP 14 (5-19); BLOOD UREA NITROGEN 61 mg/dL (7-20); CALCIUM 9.6 mg/dL (8.4-10.2); CARBON DIOXIDE 28 mmol/L (22-30); CHLORIDE 92 mmol/L (98-107); CREATININE RESULT 1.82 mg/dL (0.52-1.25); GLUCOSE 153 mg/dL (75-110); POTASSIUM 3.3 mmol/L (3.6-5.0); SODIUM 134.4 mmol/L (137-145)
== END ==
LOC: OD 09:11
PROVIDERS: ATTEND Internal Medicine Cardiovascular Disease
DX: R06.02 Shortness of breath (principal); N18.4 Chronic kidney disease, stage 4 (severe); Z79.01 Long term (current) use of anticoagulants
CPT/HCPCS: 36415; 80048; 83880; 85610

== ENCOUNTER → 2017-02-18 | Outpatient (CLI) | payer MEDICARE, OTHER ==
[2017-02-18 11:14] LABS: PROTHROMBIN TIME 31.6 SEC (11.4-15.4)
[2017-02-18 11:28] LABS: ANION GAP 17 (5-19); BLOOD UREA NITROGEN 56 mg/dL (7-20); CALCIUM 9.7 mg/dL (8.4-10.2); CARBON DIOXIDE 27 mmol/L (22-30); CHLORIDE 94 mmol/L (98-107); CREATININE RESULT 1.85 mg/dL (0.52-1.25); GLUCOSE 96 mg/dL (75-110); POTASSIUM 4.6 mmol/L (3.6-5.0); SODIUM 137.7 mmol/L (137-145)
== END ==
LOC: OD 09:08
PROVIDERS: ATTEND Internal Medicine Cardiovascular Disease
DX: N18.4 Chronic kidney disease, stage 4 (severe) (principal); R06.02 Shortness of breath; Z79.01 Long term (current) use of anticoagulants
CPT/HCPCS: 36415; 80048; 83880; 85610

== ENCOUNTER → 2017-02-25 | Outpatient (CLI) | payer MEDICARE, OTHER ==
[2017-02-25 10:32] LABS: PROTHROMBIN TIME 38.8 SEC (11.4-15.4)
[2017-02-25 10:35] LABS: ANION GAP 11 (5-19); BLOOD UREA NITROGEN 35 mg/dL (7-20); CALCIUM 9.5 mg/dL (8.4-10.2); CARBON DIOXIDE 29 mmol/L (22-30); CHLORIDE 99 mmol/L (98-107); GLUCOSE 97 mg/dL (75-110); POTASSIUM 4.7 mmol/L (3.6-5.0)
== END ==
LOC: OD 09:27
PROVIDERS: ATTEND Internal Medicine Cardiovascular Disease
DX: N18.4 Chronic kidney disease, stage 4 (severe) (principal); R06.02 Shortness of breath; Z79.01 Long term (current) use of anticoagulants
CPT/HCPCS: 36415; 80048; 83880; 85610

== ENCOUNTER → 2017-03-11 | Outpatient (CLI) | payer MEDICARE, OTHER ==
[2017-03-11 11:14] LABS: PROTHROMBIN TIME 28.8 SEC (11.4-15.4)
== END ==
LOC: OD 09:41
PROVIDERS: ATTEND Internal Medicine Cardiovascular Disease
DX: Z79.01 Long term (current) use of anticoagulants (principal); Z51.81 Encounter for therapeutic drug level monitoring
CPT/HCPCS: 36415; 85610

== ENCOUNTER → 2017-03-21 | Outpatient (CLI) | payer MEDICARE, OTHER | LOC: OD 10:15 | PROVIDERS: ATTEND Internal Medicine Cardiovascular Disease | DX: Z79.01 Long term (current) use of anticoagulants (principal) | CPT/HCPCS: 36415; 85610 ==

== ENCOUNTER → 2017-04-01 | Outpatient (CLI) | payer MEDICARE, OTHER | LOC: OD 09:13 | PROVIDERS: ATTEND Internal Medicine Cardiovascular Disease | DX: Z79.01 Long term (current) use of anticoagulants (principal) | CPT/HCPCS: 36415; 85610 ==

== ENCOUNTER → 2017-04-15 | Outpatient (CLI) | payer MEDICARE, OTHER ==
[2017-04-15 10:07] LABS: PROTHROMBIN TIME 33.5 SEC (11.4-15.4)
== END ==
LOC: OD 09:16
PROVIDERS: ATTEND Internal Medicine Cardiovascular Disease
DX: Z79.01 Long term (current) use of anticoagulants (principal)
CPT/HCPCS: 36415; 85610

== ENCOUNTER → 2017-04-26 | Outpatient (CLI) | payer MEDICARE, OTHER ==
[2017-04-26 10:15] LABS: PROTHROMBIN TIME 32.3 SEC (11.4-15.4)
[2017-04-26 11:15] LABS: ANION GAP 12 (5-19); BLOOD UREA NITROGEN 33 mg/dL (7-20); CALCIUM 9.7 mg/dL (8.4-10.2); CARBON DIOXIDE 30 mmol/L (22-30); CHLORIDE 97 mmol/L (98-107); GLUCOSE 98 mg/dL (75-110); SODIUM 139.1 mmol/L (137-145)
== END ==
LOC: OD 08:58
PROVIDERS: ATTEND Internal Medicine Cardiovascular Disease
DX: N18.4 Chronic kidney disease, stage 4 (severe) (principal); R06.02 Shortness of breath; Z79.01 Long term (current) use of anticoagulants
CPT/HCPCS: 36415; 80048; 83880; 85610

== ENCOUNTER 2017-05-08 18:25 | Emergency (ER) | payer MEDICARE, OTHER, MEDICAID ==
--- NOTE | 2017-05-08 19:00 | RADIOLOGY REPORT (SQ) ---
EXAM DESCRIPTION: WRIST RIGHT 3 VIEWS COMPLETED DATE/TIME: 05/08/2017 6:50 pm REASON FOR STUDY: right wrist injury COMPARISON: None. NUMBER OF VIEWS: Three views. TECHNIQUE: AP, lateral, and oblique radiographic images acquired of the right wrist. LIMITATIONS: None. FINDINGS: MINERALIZATION: Osteopenia. BONES: Impacted comminuted fracture of the distal radius with intra-articular extension. Ulnar fragm ent. Slight dorsal tilt. SOFT TISSUES: No soft tissue swelling. No foreign body. OTHER: No other significant finding. IMPRESSION: Impacted comminuted fracture of the distal radius with intra-articular extension. TECHNICAL DOCUMENTATION: JOB ID: [id number] [employer]- All Rights Reserved
[2017-05-08] MEDS ORDERED: ACETAMINOPHEN 325 MG TABLET PO ONE (19:09)
[2017-05-08 19:46] LABS: ABSOLUTE BASOPHILS # (AUTO) 0.1 10^3/uL (0.0-0.2); ABSOLUTE EOSINOPHILS # (AUTO) 0.1 10^3/uL (0.0-0.6); ABSOLUTE LYMPHOCYTES (AUTO) 0.8 10^3/uL (0.5-4.7); ABSOLUTE MONOCYTES (AUTO) 0.4 10^3/uL (0.1-1.4); ABSOLUTE NEUT (AUTO) 5.3 10^3/uL (1.7-8.2); EOSINOPHILS % (AUTO) 1.5 % (0-6); HEMATOCRIT 34.6 % (36.0-47.0); HEMOGLOBIN 12.2 g/dL (12.0-15.5); LYMPHOCYTES % (AUTO) 12.2 % (13-45); MEAN CORPUSCULAR HEMOGLOBIN 31.4 pg (27.0-33.4); MEAN CORPUSCULAR HGB CONC 35.3 g/dL (32.0-36.0); MEAN CORPUSCULAR VOLUME 89 fl (80-97); MONOCYTES % (AUTO) 6.3 % (3-13); RED CELL DISTRIBUTION WIDTH 15.6 % (11.5-14.0); WHITE BLOOD COUNT 6.7 10^3/uL (4.0-10.5)
[2017-05-08 20:10] LABS: ALANINE AMINOTRANSFERASE 23 U/L (9-52); ALBUMIN 4.5 g/dL (3.5-5.0); ALKALINE PHOSPHATASE 109 U/L (38-126); ANION GAP 13 (5-19); ASPARTATE AMINO TRANSFERASE 28 U/L (14-36); BILIRUBIN,DIRECT 0.6 mg/dL (0.0-0.4); BLOOD UREA NITROGEN 23 mg/dL (7-20); CALCIUM 9.3 mg/dL (8.4-10.2); CARBON DIOXIDE 29 mmol/L (22-30); CHLORIDE 98 mmol/L (98-107); CREATININE RESULT 1.67 mg/dL (0.52-1.25); GLUCOSE 150 mg/dL (75-110); POTASSIUM 3.7 mmol/L (3.6-5.0); SODIUM 140.2 mmol/L (137-145); TOTAL PROTEIN 7.3 g/dL (6.3-8.2)
--- NOTE | 2017-05-08 20:25 | RADIOLOGY REPORT (SQ) ---
EXAM DESCRIPTION: CT HEAD WITHOUT COMPLETED DATE/TIME: 05/08/2017 8:13 pm REASON FOR STUDY: fall, on coumadin COMPARISON: 2016 TECHNIQUE: Axial images acquired through the brain without intravenous contrast. Images reviewed wi th bone, brain and subdural windows. Images stored on PACS. All CT scanners at this facility use dose modulation, iterative reconstruction, and/or weight based d osing when appropriate to reduce radiation dose to as low as reasonably achievable (ALARA). [facility]: Dose Right [facility]: CareDose [facility]: Dose Right [facility]: Teradose 4D [facility]: [employer] RADIATION DOSE: Up-to-date CT equipment and radiation dose reduction techniques were employed. CTDIv ol: 64.6 mGy. DLP: 1034 mGy-cm.mGy. LIMITATIONS: None. FINDINGS: VENTRICLES: Prominent. CEREBRUM: No masses. No hemorrhage. No midline shift. Areas of low density in the white matter mos t likely due to chronic micro-vascular ischemic change. No evidence for acute infarction. CEREBELLUM: No masses. No hemorrhage. No alteration of density. No evidence for acute infarction. EXTRAAXIAL SPACES: Age-related involutional change. No fluid collections. No masses. ORBITS AND GLOBE: No intra- or extraconal masses. Normal contour of globe without masses. CALVARIUM: No fracture. PARANASAL SINUSES: No fluid or mucosal thickening. SOFT TISSUES: No mass or hematoma. OTHER: No other significant finding. IMPRESSION: CHRONIC CHANGES OF ATROPHY AND MICROVASCULAR ISCHEMIA. NO ACUTE PROCESS. EVIDENCE OF ACUTE STROKE: NO. TECHNICAL DOCUMENTATION: JOB ID: [id number] Quality ID # [id number]: Final reports with documentation of one or more dose reduction techniques (e.g., Au tomated exposure control, adjustment of the mA and/or kV according to patient size, use of iterative reconstruction technique) 2010 [employer]- All Rights Reserved
--- NOTE | 2017-05-08 20:32 | ER Document Report ---
ED Extremity Problem, Upper - General Chief Complaint: Arm Injury Stated Complaint: RIGHT WRIST PAIN Time Seen by Provider: 05/08/17 18:34 Notes: The patient is an 87-year-old female, past medical history prosthetic heart valves on Coumadin, CHF, CKD, presents after she tripped on her carpet because she was not using her cane and landed on her outstretched right hand. She is complaining of right wrist pain. 3 days ago, she had a similar fall and landed on her right side of her head. Patient has not had her INR checked in several weeks, but she has no active bleeding. She denies headache, loss of consciousness, numbness, tingling, open wounds, blurry vision, chest pain, shortness of breath, syncope, seizure-like activity, fevers or urinary symptoms. TRAVEL OUTSIDE OF THE [place] IN LAST 30 DAYS: No - Related Data Allergies/Adverse Reactions: erythromycin base [Erythromycin Base] Allergy (Severe, Verified 10/16/16 18:50) Anaphylaxis dipyridamole [From Persantine] Allergy (Verified 10/16/16 18:50) doxycycline [Doxycycline] Allergy (Verified 10/16/16 18:50) ibuprofen [From Motrin] Allergy (Verified 10/16/16 18:50) penicillin G [Penicillin G] Allergy (Verified 10/16/16 18:50) Sulfa (Sulfonamide Antibiotics) Allergy (Verified 10/16/16 18:50) vancomycin [Vancomycin] Adverse Reaction (Intermediate, Verified 10/16/16 18:50) red rings legs Past Medical History - General Information source: Patient - Social History Smoking Status: Never Smoker Chew tobacco use (# tins/day): No Frequency of alcohol use: None Drug Abuse: None Family History: Reviewed & Not Pertinent Patient has suicidal ideation: No Patient has homicidal ideation: No - Past Medical History Cardiac Medical History: Reports: Hx Atrial Fibrillation, Hx Congestive Heart Failure, Hx Coronary Artery Disease, Hx Hypercholesterolemia, Hx Hypertension Denies: Hx Heart Attack Pulmonary Medical History: Reports: Hx Pneumonia Denies: Hx Asthma, Hx Bronchitis, Hx COPD Neurological Medical History: Reports: Hx Cerebrovascular Accident. Denies: Hx Seizures Renal/ Medical History: Denies: Hx Peritoneal Dialysis Malignancy Medical History: Reports: Hx Breast Cancer - LUMPECTOMY, Hx Skin Cancer GI Medical History: Reports: Hx Gastroesophageal Reflux Disease, Hx Irritable Bowel Musculoskeltal Medical History: Denies Hx Arthritis Past Surgical History: Reports: Hx Appendectomy, Hx Breast Surgery - REMOVAL OF RIGHT BREAST, LUMPECTOMY, Hx Cardiac Surgery - MILTRAL VALVE, BYPASS X 2, STENTS , Hx Cholecystectomy, Hx Hysterectomy. Denies: Hx Pacemaker - Immunizations Hx Diphtheria, Pertussis, Tetanus Vaccination: Yes Hx Pneumococcal Vaccination: 07/22/11 Review of Systems - Review of Systems Notes: REVIEW OF SYSTEMS: CONSTITUTIONAL: -fevers, -chills EENT: -eye pain, -difficulty swallowing, -nasal congestion CARDIOVASCULAR:-chest pain, -syncope. RESPIRATORY: -cough, -SOB GASTROINTESTINAL: -abdominal pain, - nausea, -vomiting, -diarrhea GENITOURINARY: -dysuria, -hematuria MUSCULOSKELETAL: +right wrist pain, -back pain, -neck pain SKIN: -rash or skin lesions. HEMATOLOGIC: +easy bruising or bleeding. LYMPHATIC: -swollen, enlarged glands. NEUROLOGICAL: -altered mental status or loss of consciousness, -headache, - neurologic symptoms PSYCHIATRIC: -anxiety, -depression. ALL OTHER SYSTEMS REVIEWED AND NEGATIVE. Physical Exam - Vital signs Vitals: Temp Pulse Resp BP Pulse Ox 98.4 F 74 15 132/60 H 99 05/08/17 18:54 05/08/17 18:54 05/08/17 18:54 05/08/17 18:54 05/08/17 18:54 - Notes Notes: PHYSICAL EXAMINATION: GENERAL: Well-appearing, well-nourished and in no acute distress. HEAD: Ecchymosis over right temporal area, normocephalic. EYES: Pupils equal round and reactive to light, extraocular movements intact, sclera anicteric, conjunctiva are normal. ENT: nares patent, oropharynx clear without exudates. Moist mucous membranes. NECK: Normal range of motion, supple without lymphadenopathy LUNGS: Breath sounds clear to auscultation bilaterally and equal. No wheezes rales or rhonchi. HEART: Regular rate and rhythm without murmurs ABDOMEN: Soft, nontender, normoactive bowel sounds. No guarding, no rebound. No masses appreciated. EXTREMITIES: Tenderness over right distal radius. Strong radial and ulnar pulses. Brisk capillary refill and able to wiggle fingers. No pitting or edema. No cyanosis. NEUROLOGICAL: Cranial nerves grossly intact. Normal speech, normal gait. Normal sensory and motor exams. PSYCH: Normal mood, normal affect. Course - Re-evaluation Re-evalutation: Patient has a impacted distal right radius fracture with intra-articular involvement. She is neurovascularly intact distally. Placed patient is sugar tong splint and instructed her to follow-up with orthopedics this week. Her INR is elevated, but she does not have any signs of bleeding. Will hold her Coumadin for the next 2 days and have it rechecked by her primary care physician. No need for emergent reversal at this time. - Vital Signs Vital signs: Temp Pulse Resp BP Pulse Ox 98.4 F 74 12 122/83 98 05/08/17 18:54 05/08/17 18:54 05/08/17 21:22 05/08/17 21:22 05/08/17 21:22 - Laboratory Result Diagrams: 05/08/17 19:25 05/08/17 19:25 Laboratory results interpreted by me: 05/08/17 05/08/17 05/08/17 19:25 19:25 20:35 Hct 34.6 L RDW 15.6 H Plt Count 144 L Seg Neutrophils % 79.0 H Lymphocytes % 12.2 L PT 53.5 H* INR 5.69 H* APTT 78.0 H BUN 23 H Creatinine 1.67 H Est GFR ( Amer) 35 L Est GFR (Non-Af Amer) 29 L Glucose 150 H Total Bilirubin 2.0 H Direct Bilirubin 0.6 H Procedures - Immobilization Right Wrist Pre-Proc Neuro Vasc Exam: Normal Immobilizer type: Sugar tong Performed by: PCT Post-Proc Neuro Vasc Exam: Normal Alignment checked and good: Yes Discharge - Discharge Clinical Impression: Elevated INR Right radial fracture Qualifiers: Encounter type: initial encounter Radius location: distal Fracture type: closed Fracture morphology: other intra-articular Qualified Code(s): S52.571A - Other intraarticular fracture of lower end of right radius, initial encounter for closed fracture Head contusion Qualifiers: Encounter type: initial encounter Contusion of head detail: scalp Qualified Code(s): S00.03XA - Contusion of scalp, initial encounter Condition: Stable Disposition: HOME, SELF-CARE Additional Instructions: Do not take your Coumadin tonight or tomorrow night. Keep your arm in the splint and follow-up with orthopedics as soon as possible. Follow-up with your primary care physician to have your INR rechecked. Fractured Radius The bone called the radius is fractured. This type of fracture is typically caused by falling onto the outstretched hand. You must follow-up with the orthopedic surgeon. A cast or splint is used to protect the fracture. For the first few days after the injury, the arm should be elevated and ice packed. Healing takes from three to eight weeks, depending on the age of the patient and the seriousness of the fracture. Your doctor has explained the treatment plan. It's important that you follow up as instructed to prevent complications. Call the doctor or return at once if severe pain or swelling occur, or if the hand becomes numb, swollen, or discolored. Prescriptions: Tramadol HCl [Ultram 50 mg Tablet] 50 mg PO Q6HP PRN #[id number] tablet PRN Reason: Referrals: CHRISTIANA MEJIA MD [Primary Care Provider] - Follow up as needed KAROLINA MARISCAL DO [ACTIVE STAFF] - Follow up as needed
[2017-05-08 21:16] LABS: PROTHROMBIN TIME 53.5 SEC (11.4-15.4)
[2017-05-08 21:59] VITALS: BP 122/83
== END 2017-05-08 22:00 | disposition home or self-care (01) ==
LOC: ER 18:25
PROC: 2W3CX1Z Immobilization of Right Lower Arm using Splint (ICD-10-PCS; principal; 2017-05-08)
DX: S52.571A Other intraarticular fracture of lower end of right radius, initial encounter for closed fracture (principal); S00.03XA Contusion of scalp, initial encounter; M25.531 Pain in right wrist; Z79.01 Long term (current) use of anticoagulants; I50.9 Heart failure, unspecified; N18.9 Chronic kidney disease, unspecified; W01.0XXA Fall on same level from slipping, tripping and stumbling without subsequent striking against object, initial encounter
CPT/HCPCS: 99284; 36415; 85025; 85610; 85730; 80053; 73110; 70450; 29125; A9270

== ENCOUNTER → 2017-05-14 | Outpatient (CLI) | payer MEDICARE, OTHER ==
[2017-05-14 11:48] LABS: PROTHROMBIN TIME 35.5 SEC (11.4-15.4)
== END ==
LOC: OD 10:06
PROVIDERS: ATTEND Internal Medicine Cardiovascular Disease
DX: Z51.81 Encounter for therapeutic drug level monitoring (principal); Z79.01 Long term (current) use of anticoagulants
CPT/HCPCS: 36415; 85610

== ENCOUNTER → 2017-05-20 | Outpatient (CLI) | payer MEDICARE, OTHER, MEDICAID ==
[2017-05-20 11:37] LABS: PROTHROMBIN TIME 27.1 SEC (11.4-15.4)
== END ==
LOC: OD 10:08
PROVIDERS: ATTEND Internal Medicine Cardiovascular Disease
DX: I48.2 Chronic atrial fibrillation (principal); Z79.01 Long term (current) use of anticoagulants; I49.02 Ventricular flutter; I50.22 Chronic systolic (congestive) heart failure; N18.4 Chronic kidney disease, stage 4 (severe)
CPT/HCPCS: 36415; 85610

== ENCOUNTER → 2017-06-10 | Outpatient (CLI) | payer MEDICARE, OTHER ==
[2017-06-10 11:35] LABS: PROTHROMBIN TIME 27.2 SEC (11.4-15.4)
== END ==
LOC: OD 10:17
PROVIDERS: ATTEND Internal Medicine Cardiovascular Disease
DX: Z79.01 Long term (current) use of anticoagulants (principal); Z51.81 Encounter for therapeutic drug level monitoring
CPT/HCPCS: 36415; 85610

== ENCOUNTER → 2017-06-12 | Outpatient (CLI) | payer MEDICARE, OTHER, MEDICAID ==
[2017-06-12 11:10] LABS: PROTHROMBIN TIME 32.1 SEC (11.4-15.4)
== END ==
LOC: OD 09:47
PROVIDERS: ATTEND Internal Medicine Cardiovascular Disease
DX: I48.2 Chronic atrial fibrillation (principal); I34.9 Nonrheumatic mitral valve disorder, unspecified; G45.9 Transient cerebral ischemic attack, unspecified; Z79.01 Long term (current) use of anticoagulants
CPT/HCPCS: 36415; 85610

== ENCOUNTER → 2017-06-18 | Outpatient (CLI) | payer MEDICARE, OTHER, MEDICAID ==
[2017-06-18 09:24] LABS: PROTHROMBIN TIME 41.6 SEC (11.4-15.4)
== END ==
LOC: OD 08:33
PROVIDERS: ATTEND Internal Medicine Cardiovascular Disease
DX: I48.2 Chronic atrial fibrillation (principal); I34.9 Nonrheumatic mitral valve disorder, unspecified; G45.9 Transient cerebral ischemic attack, unspecified; Z79.01 Long term (current) use of anticoagulants
CPT/HCPCS: 36415; 85610

== ENCOUNTER → 2017-06-28 | Outpatient (CLI) | payer MEDICARE, OTHER, MEDICAID ==
[2017-06-28 11:20] LABS: PROTHROMBIN TIME 25.2 SEC (11.4-15.4)
[2017-06-28 11:31] LABS: ANION GAP 18 (5-19); BLOOD UREA NITROGEN 37 mg/dL (7-20); CALCIUM 9.6 mg/dL (8.4-10.2); CARBON DIOXIDE 26 mmol/L (22-30); CHLORIDE 97 mmol/L (98-107); CREATININE RESULT 1.56 mg/dL (0.52-1.25); GLUCOSE 135 mg/dL (75-110); POTASSIUM 4.4 mmol/L (3.6-5.0); SODIUM 140.7 mmol/L (137-145)
== END ==
LOC: OD 10:08
PROVIDERS: ATTEND Internal Medicine Cardiovascular Disease
DX: N18.4 Chronic kidney disease, stage 4 (severe) (principal); R06.02 Shortness of breath; Z79.01 Long term (current) use of anticoagulants
CPT/HCPCS: 36415; 80048; 83880; 85610

== ENCOUNTER → 2017-07-10 | Outpatient (CLI) | payer MEDICARE, OTHER, MEDICAID | LOC: OD 08:56 | PROVIDERS: ATTEND Internal Medicine Cardiovascular Disease | DX: I48.2 Chronic atrial fibrillation (principal); Z79.01 Long term (current) use of anticoagulants; I34.9 Nonrheumatic mitral valve disorder, unspecified; G45.9 Transient cerebral ischemic attack, unspecified | CPT/HCPCS: 36415; 85610 ==

== ENCOUNTER → 2017-07-23 | Outpatient (CLI) | payer MEDICARE, OTHER, MEDICAID ==
[2017-07-23 11:23] LABS: INTERNATIONAL RATION (INR) 2.97; PROTHROMBIN TIME 32.3 SEC (11.4-15.4)
== END ==
LOC: OD 10:03
PROVIDERS: ATTEND Internal Medicine Cardiovascular Disease
DX: G45.9 Transient cerebral ischemic attack, unspecified (principal); I34.9 Nonrheumatic mitral valve disorder, unspecified; Z79.01 Long term (current) use of anticoagulants
CPT/HCPCS: 36415; 85610

== ENCOUNTER → 2017-08-01 | Outpatient (CLI) | payer MEDICARE, OTHER, MEDICAID ==
[2017-08-01 10:31] LABS: INTERNATIONAL RATION (INR) 2.51; PROTHROMBIN TIME 28.4 SEC (11.4-15.4)
== END ==
LOC: OD 09:33
PROVIDERS: ATTEND Internal Medicine Cardiovascular Disease
DX: I48.2 Chronic atrial fibrillation (principal); G45.9 Transient cerebral ischemic attack, unspecified; I34.9 Nonrheumatic mitral valve disorder, unspecified; Z79.01 Long term (current) use of anticoagulants
CPT/HCPCS: 36415; 85610

== ENCOUNTER → 2017-08-09 | Outpatient (CLI) | payer MEDICARE, OTHER, MEDICAID ==
[2017-08-09 12:03] LABS: INTERNATIONAL RATION (INR) 3.09; PROTHROMBIN TIME 33.3 SEC (11.4-15.4)
== END ==
LOC: OD 10:20
PROVIDERS: ATTEND Internal Medicine Cardiovascular Disease
DX: I48.2 Chronic atrial fibrillation (principal); G45.9 Transient cerebral ischemic attack, unspecified; Z79.01 Long term (current) use of anticoagulants
CPT/HCPCS: 36415; 85610

== ENCOUNTER → 2017-08-20 | Outpatient (CLI) | payer MEDICARE, OTHER, MEDICAID ==
[2017-08-20 11:01] LABS: INTERNATIONAL RATION (INR) 2.81
== END ==
LOC: OD 09:43
PROVIDERS: ATTEND Internal Medicine Cardiovascular Disease
DX: I48.2 Chronic atrial fibrillation (principal); G45.9 Transient cerebral ischemic attack, unspecified; Z79.01 Long term (current) use of anticoagulants
CPT/HCPCS: 36415; 85610

== ENCOUNTER → 2017-09-02 | Outpatient (CLI) | payer MEDICARE, OTHER, MEDICAID ==
[2017-09-02 12:05] LABS: INTERNATIONAL RATION (INR) 3.67; PROTHROMBIN TIME 38.1 SEC (11.4-15.4)
[2017-09-02 12:30] LABS: ANION GAP 11 (5-19); BLOOD UREA NITROGEN 31 mg/dL (7-20); CALCIUM 9.9 mg/dL (8.4-10.2); CARBON DIOXIDE 29 mmol/L (22-30); CHLORIDE 96 mmol/L (98-107); GLUCOSE 92 mg/dL (75-110); POTASSIUM 4.5 mmol/L (3.6-5.0); SODIUM 136.2 mmol/L (137-145)
== END ==
LOC: OD 10:28
PROVIDERS: ATTEND Internal Medicine Cardiovascular Disease
DX: R06.02 Shortness of breath (principal); I34.9 Nonrheumatic mitral valve disorder, unspecified; I48.2 Chronic atrial fibrillation; Z79.01 Long term (current) use of anticoagulants
CPT/HCPCS: 36415; 80048; 83880; 85610

== ENCOUNTER → 2017-09-16 | Outpatient (CLI) | payer MEDICARE, OTHER, MEDICAID ==
[2017-09-16 11:40] LABS: INTERNATIONAL RATION (INR) 2.12; PROTHROMBIN TIME 24.9 SEC (11.4-15.4)
[2017-09-16 11:53] LABS: ALANINE AMINOTRANSFERASE 20 U/L (9-52); ALBUMIN 4.3 g/dL (3.5-5.0); ALKALINE PHOSPHATASE 91 U/L (38-126); ANION GAP 17 (5-19); ASPARTATE AMINO TRANSFERASE 27 U/L (14-36); BILIRUBIN,DIRECT 0.6 mg/dL (0.0-0.4); BILIRUBIN,TOTAL 2.3 mg/dL (0.2-1.3); BLOOD UREA NITROGEN 27 mg/dL (7-20); CALCIUM 9.4 mg/dL (8.4-10.2); CARBON DIOXIDE 27 mmol/L (22-30); CHLORIDE 95 mmol/L (98-107); GLUCOSE 96 mg/dL (75-110); POTASSIUM 3.8 mmol/L (3.6-5.0); SODIUM 138.6 mmol/L (137-145); TOTAL PROTEIN 7.1 g/dL (6.3-8.2)
== END ==
LOC: OD 10:18
PROVIDERS: ATTEND Internal Medicine Cardiovascular Disease
DX: I50.22 Chronic systolic (congestive) heart failure (principal); R06.02 Shortness of breath; E78.00 Pure hypercholesterolemia, unspecified; N18.4 Chronic kidney disease, stage 4 (severe); Z79.899 Other long term (current) drug therapy; I48.1 Persistent atrial fibrillation; Z79.01 Long term (current) use of anticoagulants
CPT/HCPCS: 36415; 80048; 80076; 83880; 85610

== ENCOUNTER → 2017-09-20 | Outpatient (CLI) | payer MEDICARE, OTHER, MEDICAID ==
[2017-09-20 09:28] LABS: INTERNATIONAL RATION (INR) 3.81
[2017-09-23 16:02] LABS: PROTHROMBIN TIME 39.2 SEC (11.4-15.4)
== END ==
LOC: OD 08:04
PROVIDERS: ATTEND Internal Medicine Cardiovascular Disease
DX: Z79.01 Long term (current) use of anticoagulants (principal); I48.2 Chronic atrial fibrillation; I34.9 Nonrheumatic mitral valve disorder, unspecified; G45.9 Transient cerebral ischemic attack, unspecified
CPT/HCPCS: 36415; 85610

== ENCOUNTER → 2017-09-30 | Outpatient (CLI) | payer MEDICARE, OTHER ==
[2017-09-30 11:08] LABS: INTERNATIONAL RATION (INR) 2.43; PROTHROMBIN TIME 27.6 SEC (11.4-15.4)
== END ==
LOC: OD 10:24
PROVIDERS: ATTEND Internal Medicine Cardiovascular Disease
DX: I48.2 Chronic atrial fibrillation (principal); Z79.01 Long term (current) use of anticoagulants
CPT/HCPCS: 36415; 85610

== ENCOUNTER → 2017-10-01 | Outpatient (CLI) | payer MEDICARE, OTHER ==
--- NOTE | 2017-10-01 13:14 | RADIOLOGY REPORT (SQ) ---
EXAM DESCRIPTION: CT ORBIT/SELLA WITHOUT COMPLETED DATE/TIME: 10/01/2017 9:24 am REASON FOR STUDY: H91.8X1 OTHER SPECIFIED HEARING LOSS, RIGHT EAR R42 DIZZINESS AND GIDDINESS H91.8X 1 OTHER SPECIFIED HEARING LOSS, RIGHT EAR R42 DIZZINESS AND GIDDINESS COMPARISON: None. TECHNIQUE: Noncontrasted thin section axial images through the temporal bones and skull base were ob tained and reviewed at bone windows and bone algorithm with coronal and sagittal reconstructions. All CT scanners at this facility use dose modulation, iterative reconstruction, and/or weight based d osing when appropriate to reduce radiation dose to as low as reasonably achievable (ALARA). [facility]: Dose Right [facility]: CareDose [facility]: Dose Right [facility]: Teradose 4D [facility]: [employer] RADIATION DOSE: 17.2 mGy. LIMITATIONS: None. FINDINGS: RIGHT SIDE: EXTERNAL AUDITORY CANAL: Widely patent. TYMPANIC MEMBRANE: No masses, thickening or medial retraction. OSSICLES AND MIDDLE EAR CAVITY: Normal ossicles. No middle ear masses or fluid. INNER EAR STRUCTURES: Normal vestibule and cochlea. Normal aqueducts. INTERNAL AUDITORY CANAL: Normal bony canal without narrowing or widening. No calcified or ossified m asses. TEMPOROMANDIBULAR JOINT: Normal. MASTOID AIR CELLS: Clear. LEFT SIDE: EXTERNAL AUDITORY CANAL: Widely patent. TYMPANIC MEMBRANE: No masses, thickening or medial retraction. OSSICLES AND MIDDLE EAR CAVITY: Normal ossicles. No middle ear masses or fluid. INNER EAR STRUCTURES: Normal vestibule and cochlea. Normal aqueducts. INTERNAL AUDITORY CANAL: Normal bony canal without narrowing or widening. No calcified or ossified m asses. TEMPOROMANDIBULAR JOINT: Normal. MASTOID AIR CELLS: Clear. CENTRAL SKULL BASE: Normal foramina. No lytic or blastic lesions. INFERIOR BRAIN: Limited view. No acute findings. LIMITED VIEW OF PARANASAL SINUSES IN THE FIELD OF VIEW: Normal. IMPRESSION: UNREMARKABLE NONCONTRASTED TEMPORAL BONE CT. TECHNICAL DOCUMENTATION: JOB ID: [id number] Quality ID # [id number]: Final reports with documentation of one or more dose reduction techniques (e.g., Au tomated exposure control, adjustment of the mA and/or kV according to patient size, use of iterative reconstruction technique) 2010 [employer]- All Rights Reserved Reading location - IP/workstation name: [email or web address]
== END ==
LOC: RAD 12:00
PROVIDERS: ATTEND Otolaryngology
DX: H91.8X1 Other specified hearing loss, right ear (principal); H81.11 Benign paroxysmal vertigo, right ear; H91.21 Sudden idiopathic hearing loss, right ear
CPT/HCPCS: 70480

== ENCOUNTER → 2017-10-08 | Outpatient (CLI) | payer MEDICARE, OTHER ==
[2017-10-08 11:48] LABS: INTERNATIONAL RATION (INR) 3.13; PROTHROMBIN TIME 33.7 SEC (11.4-15.4)
== END ==
LOC: OD 10:36
PROVIDERS: ATTEND Internal Medicine Cardiovascular Disease
DX: I48.2 Chronic atrial fibrillation (principal); Z79.01 Long term (current) use of anticoagulants
CPT/HCPCS: 36415; 85610

== ENCOUNTER → 2017-10-14 | Outpatient (CLI) | payer MEDICARE, OTHER ==
[2017-10-14 10:40] LABS: INTERNATIONAL RATION (INR) 3.11; PROTHROMBIN TIME 33.5 SEC (11.4-15.4)
== END ==
LOC: OD 09:36
PROVIDERS: ATTEND Internal Medicine Cardiovascular Disease
DX: I48.2 Chronic atrial fibrillation (principal); Z79.01 Long term (current) use of anticoagulants
CPT/HCPCS: 36415; 85610

== ENCOUNTER → 2017-10-28 | Outpatient (CLI) | payer MEDICARE, OTHER ==
[2017-10-28 11:52] LABS: PROTHROMBIN TIME 46.3 SEC (11.4-15.4)
== END ==
LOC: OD 10:48
PROVIDERS: ATTEND Internal Medicine Cardiovascular Disease
DX: I48.2 Chronic atrial fibrillation (principal); Z79.01 Long term (current) use of anticoagulants
CPT/HCPCS: 36415; 85610

== ENCOUNTER → 2017-11-04 | Outpatient (CLI) | payer MEDICARE, OTHER, MEDICAID ==
[2017-11-04 11:19] LABS: INTERNATIONAL RATION (INR) 1.89
[2017-11-04 11:28] LABS: PROTHROMBIN TIME 22.6 SEC (11.4-15.4)
[2017-11-04 11:35] LABS: ANION GAP 12 (5-19); BLOOD UREA NITROGEN 34 mg/dL (7-20); CALCIUM 9.2 mg/dL (8.4-10.2); CARBON DIOXIDE 28 mmol/L (22-30); CHLORIDE 97 mmol/L (98-107); GLUCOSE 173 mg/dL (75-110); POTASSIUM 3.9 mmol/L (3.6-5.0)
== END ==
LOC: OD 10:16
PROVIDERS: ATTEND Internal Medicine Cardiovascular Disease
DX: I50.22 Chronic systolic (congestive) heart failure (principal); I34.9 Nonrheumatic mitral valve disorder, unspecified; R06.02 Shortness of breath; I48.2 Chronic atrial fibrillation; Z79.01 Long term (current) use of anticoagulants
CPT/HCPCS: 36415; 80048; 83880; 85610

== ENCOUNTER → 2017-11-13 | Outpatient (CLI) | payer MEDICARE, OTHER, MEDICAID ==
[2017-11-13 12:13] LABS: INTERNATIONAL RATION (INR) 2.47; PROTHROMBIN TIME 27.9 SEC (11.4-15.4)
== END ==
LOC: OD 10:47
PROVIDERS: ATTEND Internal Medicine Cardiovascular Disease
DX: I48.2 Chronic atrial fibrillation (principal); Z79.01 Long term (current) use of anticoagulants
CPT/HCPCS: 36415; 85610

== ENCOUNTER → 2017-11-27 | Outpatient (CLI) | payer MEDICARE, OTHER, MEDICAID ==
[2017-11-27 11:25] LABS: INTERNATIONAL RATION (INR) 3.43; PROTHROMBIN TIME 36.2 SEC (11.4-15.4)
[2017-11-27 11:51] LABS: ALANINE AMINOTRANSFERASE 16 U/L (9-52); ALBUMIN 4.2 g/dL (3.5-5.0); ALKALINE PHOSPHATASE 107 U/L (38-126); ANION GAP 13 (5-19); ASPARTATE AMINO TRANSFERASE 24 U/L (14-36); BILIRUBIN,DIRECT 0.4 mg/dL (0.0-0.4); BLOOD UREA NITROGEN 29 mg/dL (7-20); CALCIUM 9.7 mg/dL (8.4-10.2); CARBON DIOXIDE 31 mmol/L (22-30); CHLORIDE 99 mmol/L (98-107); GLUCOSE 95 mg/dL (75-110); POTASSIUM 3.9 mmol/L (3.6-5.0); SODIUM 142.6 mmol/L (137-145); TOTAL PROTEIN 7.3 g/dL (6.3-8.2)
== END ==
LOC: OD 10:23
PROVIDERS: ATTEND Internal Medicine Cardiovascular Disease
DX: I50.22 Chronic systolic (congestive) heart failure (principal); I10 Essential (primary) hypertension; I48.2 Chronic atrial fibrillation; R06.02 Shortness of breath; E78.00 Pure hypercholesterolemia, unspecified; Z79.01 Long term (current) use of anticoagulants; Z79.899 Other long term (current) drug therapy
CPT/HCPCS: 36415; 80048; 80076; 83880; 85610

== ENCOUNTER → 2017-12-09 | Outpatient (CLI) | payer MEDICARE, OTHER, MEDICAID ==
[2017-12-09 12:25] LABS: INTERNATIONAL RATION (INR) 4.84; PROTHROMBIN TIME 47.4 SEC (11.4-15.4)
== END ==
LOC: OD 10:38
PROVIDERS: ATTEND Internal Medicine Cardiovascular Disease
DX: I48.2 Chronic atrial fibrillation (principal); Z79.01 Long term (current) use of anticoagulants
CPT/HCPCS: 36415; 85610

== ENCOUNTER → 2017-12-13 | Outpatient (CLI) | payer MEDICARE, OTHER, MEDICAID ==
[2017-12-13 10:42] LABS: INTERNATIONAL RATION (INR) 2.97; PROTHROMBIN TIME 32.3 SEC (11.4-15.4)
== END ==
LOC: OD 09:46
PROVIDERS: ATTEND Internal Medicine Cardiovascular Disease
DX: I48.2 Chronic atrial fibrillation (principal); Z79.01 Long term (current) use of anticoagulants
CPT/HCPCS: 36415; 85610

== ENCOUNTER → 2017-12-18 | Outpatient (CLI) | payer MEDICARE, OTHER, MEDICAID ==
[2017-12-18 10:42] LABS: INTERNATIONAL RATION (INR) 1.97; PROTHROMBIN TIME 23.4 SEC (11.4-15.4)
== END ==
LOC: OD 09:48
PROVIDERS: ATTEND Internal Medicine Cardiovascular Disease
DX: I48.2 Chronic atrial fibrillation (principal); Z79.01 Long term (current) use of anticoagulants
CPT/HCPCS: 36415; 85610

== ENCOUNTER → 2017-12-23 | Outpatient (CLI) | payer MEDICARE, OTHER, MEDICAID ==
[2017-12-23 11:16] LABS: INTERNATIONAL RATION (INR) 3.47
[2017-12-23 11:18] LABS: PROTHROMBIN TIME 36.5 SEC (11.4-15.4)
[2017-12-23 11:25] LABS: ANION GAP 17 (5-19); BLOOD UREA NITROGEN 30 mg/dL (7-20); CALCIUM 9.4 mg/dL (8.4-10.2); CARBON DIOXIDE 23 mmol/L (22-30); CHLORIDE 102 mmol/L (98-107); GLUCOSE 164 mg/dL (75-110); POTASSIUM 3.4 mmol/L (3.6-5.0); SODIUM 142.4 mmol/L (137-145)
== END ==
LOC: OD 10:07
PROVIDERS: ATTEND Internal Medicine Cardiovascular Disease
DX: I50.22 Chronic systolic (congestive) heart failure (principal); R06.02 Shortness of breath; I48.2 Chronic atrial fibrillation; Z79.01 Long term (current) use of anticoagulants
CPT/HCPCS: 36415; 80048; 83880; 85610

== ENCOUNTER → 2017-12-30 | Outpatient (CLI) | payer MEDICARE, OTHER, MEDICAID ==
[2017-12-30 10:35] LABS: INTERNATIONAL RATION (INR) 3.28; PROTHROMBIN TIME 34.9 SEC (11.4-15.4)
[2017-12-30 10:52] LABS: ANION GAP 16 (5-19); BLOOD UREA NITROGEN 28 mg/dL (7-20); CALCIUM 9.6 mg/dL (8.4-10.2); CARBON DIOXIDE 24 mmol/L (22-30); CHLORIDE 101 mmol/L (98-107); GLUCOSE 158 mg/dL (75-110); POTASSIUM 3.2 mmol/L (3.6-5.0); SODIUM 141.3 mmol/L (137-145)
== END ==
LOC: LAB 09:49
PROVIDERS: ATTEND Internal Medicine Cardiovascular Disease
DX: R06.02 Shortness of breath (principal); N18.4 Chronic kidney disease, stage 4 (severe); I48.2 Chronic atrial fibrillation; Z79.01 Long term (current) use of anticoagulants
CPT/HCPCS: 36415; 80048; 83880; 85610

== ENCOUNTER → 2018-01-21 | Outpatient (CLI) | payer MEDICARE, OTHER, MEDICAID ==
[2018-01-21 11:57] LABS: INTERNATIONAL RATION (INR) 2.38; PROTHROMBIN TIME 27.2 SEC (11.4-15.4)
[2018-01-21 12:11] LABS: BLOOD UREA NITROGEN 81 mg/dL (7-20); CALCIUM 9.8 mg/dL (8.4-10.2); GLUCOSE 135 mg/dL (75-110); POTASSIUM 4.7 mmol/L (3.6-5.0)
[2018-01-21 12:18] LABS: CARBON DIOXIDE 22 mmol/L (22-30); CHLORIDE 95 mmol/L (98-107); SODIUM 138.6 mmol/L (137-145)
[2018-01-21 12:22] LABS: ANION GAP 22 (5-19)
== END ==
LOC: OD 10:39
PROVIDERS: ATTEND Registered Nurse
DX: I50.22 Chronic systolic (congestive) heart failure (principal); R60.9 Edema, unspecified; Z79.02 Long term (current) use of antithrombotics/antiplatelets
CPT/HCPCS: 36415; 80048; 83735; 85610

== ENCOUNTER → 2018-02-28 | Outpatient (CLI) | payer MEDICARE, OTHER, MEDICAID ==
[2018-02-28 10:39] LABS: ABSOLUTE EOSINOPHILS # (AUTO) 0.1 10^3/uL (0.0-0.6); ABSOLUTE LYMPHOCYTES (AUTO) 0.9 10^3/uL (0.5-4.7); ABSOLUTE MONOCYTES (AUTO) 0.5 10^3/uL (0.1-1.4); ABSOLUTE NEUT (AUTO) 4.6 10^3/uL (1.7-8.2); BASOPHILS % (AUTO) 0.7 % (0-2); EOSINOPHILS % (AUTO) 1.7 % (0-6); HEMATOCRIT 35.4 % (36.0-47.0); HEMOGLOBIN 11.8 g/dL (12.0-15.5); LYMPHOCYTES % (AUTO) 14.9 % (13-45); MEAN CORPUSCULAR HEMOGLOBIN 30.1 pg (27.0-33.4); MEAN CORPUSCULAR HGB CONC 33.4 g/dL (32.0-36.0); MEAN CORPUSCULAR VOLUME 90 fl (80-97); MONOCYTES % (AUTO) 8.3 % (3-13); PLATELET COUNT 161 10^3/uL (150-450); RED BLOOD COUNT 3.94 10^6/uL (3.72-5.28); RED CELL DISTRIBUTION WIDTH 18.2 % (11.5-14.0); SEGMENTED NEUTROPHILS % (AUTO) 74.4 % (42-78); TOTAL CELLS COUNTED % (AUTO) 100 %; WHITE BLOOD COUNT 6.2 10^3/uL (4.0-10.5)
[2018-02-28 10:59] LABS: ANION GAP 15 (5-19); BLOOD UREA NITROGEN 35 mg/dL (7-20); CALCIUM 9.2 mg/dL (8.4-10.2); CARBON DIOXIDE 22 mmol/L (22-30); CHLORIDE 102 mmol/L (98-107); GLUCOSE 101 mg/dL (75-110); POTASSIUM 3.6 mmol/L (3.6-5.0); SODIUM 139.2 mmol/L (137-145)
== END ==
LOC: OD 09:55
PROVIDERS: ATTEND Internal Medicine Cardiovascular Disease
DX: I50.20 Unspecified systolic (congestive) heart failure (principal)
CPT/HCPCS: 36415; 80048; 83880; 85025

== ENCOUNTER → 2018-08-11 | Outpatient (CLI) | payer MEDICARE, OTHER ==
--- NOTE | 2018-08-11 09:53 | RADIOLOGY REPORT (SQ) ---
EXAM DESCRIPTION: BARIUM SWALLOW ESOPHAGUS COMPLETED DATE/TIME: 08/11/2018 8:37 am REASON FOR STUDY: ESOPHAGEAL OBSTRUCTION K22.2 ESOPHAGEAL OBSTRUCTION COMPARISON: Two-view chest 10/16/2016 TECHNIQUE: Under fluoroscopic guidance, patient ingested effervescent granules followed by thick and thin barium. Fluoroscopic spot images and routine radiographic images acquired and stored on PACS. 12 MM BARIUM TABLET GIVEN: Yes. Prominent tertiary contractions of the esophagus. The 12 mm barium tablet paused in the mid 3rd of t he esophagus for 2 minutes, reproducing patient's symptoms. 12 mm barium tablet than dropped down to the GE junction, paused for 2 minutes and reproduced the patient's symptoms. LIMITATIONS: None. FLUOROSCOPY TIME: FLUORO TIME: 2 minutes 29 seconds 20 series of digital fluoroscopic images saved to PACS. FINDINGS: NEUROMUSCULAR COORDINATION OF SWALLOW: Normal. No aspiration. ESOPHAGEAL MOTILITY: Prominent tertiary contractions of the esophagus. ESOPHAGEAL MUCOSA: Normal mucosa without masses or ulceration. GASTRO-ESOPHAGEAL JUNCTION: No hiatal hernia. No Schatzki's ring. Mild distal esophageal narrowing just above the GE junction likely from short segment peptic narrowing. No mucosal irregularity NON-GI TRACT STRUCTURES: Cardiomegaly, sternotomy, CABG, mitral valve replacement, proximal aortic st ent graft OTHER: No other significant finding. IMPRESSION: Tertiary contractions of the esophagus COMMENT: Quality ID [id number]: Final reports for procedures using fluoroscopy that document radiation exp osure indices, or exposure time and number of fluorographic images (if radiation exposure indices are not available) TECHNICAL DOCUMENTATION: JOB ID: [id number] [employer]- All Rights Reserved Reading location - IP/workstation name: [facility]
== END ==
LOC: RAD 07:23
PROVIDERS: ATTEND Family Medicine
DX: K22.2 Esophageal obstruction (principal); K21.0 Gastro-esophageal reflux disease with esophagitis
CPT/HCPCS: 74220